=== PATIENT | female | born 1975 | race Caucasian/White ===

== ENCOUNTER → 2017-04-23 | Outpatient (CLI) | payer BC ==
[2017-04-23 19:52] LABS: CH 32.8; CHCM 34.6; HDW 2.58; HGB 13.8 gm/dL (11.4-16.0); MCHC 33.7 g/dL (31.0-37.0); MCV 95.2 fL (80.0-100.0); Mean Platelet Volume 9.8; RDW 13.9 % (11.5-15.5); WBC 7.8 k/uL (3.8-10.6)
[2017-04-23 19:58] LABS: ALT 30 U/L (9-52); AST 25 U/L (14-36); Alkaline Phosphatase 105 U/L (38-126); Anion Gap 10 mmol/L; Blood Urea Nitrogen 17 mg/dL (7-17); Calcium 9.5 mg/dL (8.4-10.2); Carbon Dioxide 23 mmol/L (22-30); Chloride 105 mmol/L (98-107); Glucose 93 mg/dL (74-99); Non-African American GFR(MDRD) >60 (>60 ml/min/1.73 sqM); Potassium 4.1 mmol/L (3.5-5.1); Sodium 138 mmol/L (137-145); Total Bilirubin 0.4 mg/dL (0.2-1.3); Total Protein 7.4 g/dL (6.3-8.2)
[2017-04-24 00:57] LABS: Estradiol 263.7 pg/mL
== END | disposition home or self-care (01) ==
LOC: MMGSC 15:07
PROVIDERS: ATTEND Obstetrics & Gynecology
DX: R68.82 Decreased libido (principal); F41.9 Anxiety disorder, unspecified; R53.83 Other fatigue; R63.5 Abnormal weight gain
CPT/HCPCS: 36415; 80053; 82670; 83001; 84403; 84439; 84443; 85027

== ENCOUNTER → 2021-05-14 | Outpatient (CLI) | payer BC ==
--- NOTE | 2021-05-14 15:06 | US ---
EXAMINATION TYPE: US pelvis complete transvag DATE OF EXAM: 05/14/2021 COMPARISON: Prior pelvic ultrasound 08/17/2010 CLINICAL HISTORY: N93.8 Other specified abnormal uterine and vaginal. TECHNIQUE: Transvaginal (TV) and Transabdominal (TA) . Transabdominal sonographic images of the pel vis were acquired. Transvaginal sonographic images were medically necessary to better assess the fol lowing anatomy: Uterus and ovaries Date of LMP: Abnormal bleeding for 3 weeks. EXAM MEASUREMENTS: Uterus: 9.7x7.7x5.8cm Endometrial Stripe: 1.0m Right Ovary: 4.7x3.1x3.4cm Left Ovary: 4.0x2.7x3.6cm 1. Uterus: Anteverted Heterogenous 2. Endometrium: wnl 3. Right Ovary: Cyst 3.4x2.9x3.4cm, some low-level internal echoes are suspected, some peripheral fl ow is present on color Doppler 4. Left Ovary: cyst 2.5x1.7x1.4cm, cystic focus was identified on prior exam measuring 3.2 x 2.4 x 2 .3 cm 5. Bilateral Adnexa: Obscured by overlying bowel gas 6. Posterior cul-de-sac: wnl Difficult due to patient body habitus. IMPRESSION: Somewhat limited exam technically. Findings could represent hemorrhagic cysts associated with the ovaries. Follow-up could BE performed to assess for resolution or stability.
== END | disposition home or self-care (01) ==
LOC: RADUSWWP 14:02
PROVIDERS: ATTEND Family Medicine
DX: N93.8 Other specified abnormal uterine and vaginal bleeding (principal)
CPT/HCPCS: 76830; 76856

== ENCOUNTER → 2021-11-13 | Outpatient (CLI) | payer BC ==
--- NOTE | 2021-11-13 15:49 | US ---
EXAMINATION TYPE: US axilla LT DATE OF EXAM: 11/13/2021 COMPARISON: NONE CLINICAL HISTORY: 46-year-old female N63.32 MASS L AXILLA. The palpable in the left axilla for a few weeks, the skin is red and tender to touch, was on antibiotics but finished, patient said she did not notice change in size Technique: Targeted ultrasound examination left axilla the palpable site. FINDINGS: At site of palp in left axilla there is a 1.2 x 1.2 x 0.5cm complex cystic structure within the dermi s that is well circumscribed with through transmission. IMPRESSION: Findings suggests a 1.2 cm cystic dermal lesion just below the skin surface, possible sebaceous cyst or epidermal inclusion cyst.
== END | disposition home or self-care (01) ==
LOC: RADUSWWP 11:54
PROVIDERS: ATTEND Family Medicine
DX: N63.32 Unspecified lump in axillary tail of the left breast (principal)

== ENCOUNTER 2022-08-26 08:24 | Observation (INO) | payer BC ==
[2022-08-26] MEDS ORDERED: SODIUM CHLORIDE 0.9% 1,000 ML IV STA (08:50)
--- NOTE | 2022-08-26 08:54 | ED ---
Female Urogenital HPI - General Chief complaint: Vaginal Bleeding Stated complaint: vaginal bleeding, lightheaded Time Seen by Provider: 08/26/22 08:40 Source: patient, RN notes reviewed, old records reviewed Mode of arrival: ambulatory Limitations: no limitations - History of Present Illness Initial comments: 47-year-old female presents with 3 weeks of vaginal bleeding. Has had dysfunctional uterine bleeding in the past and has an appointment with Dr. Sawyer today for this at 10:00. Today felt increasing weakness with occasional shortness of breath and dizziness. Does have history of hypertension. MD Complaint: vaginal bleeding -: week(s) (3) Radiation: suprapubic Severity scale (1-10): 5 Quality: cramping Patient : No Associated Symptoms: other (fatigue, shortness of breath) - Related Data Home Medications Medication Instructions Recorded Confirmed Ibuprofen [Motrin] 800 mg PO Q8H 08/26/22 08/26/22 Liquid Iron Drops (Unknown Brand) 2 ml PO DAILY 08/26/22 08/26/22 Losartan [Cozaar] 25 mg PO HS 08/26/22 08/26/22 Venlafaxine HCl [Effexor XR] 75 mg PO HS 08/26/22 08/26/22 Allergies Allergy/AdvReac Type Severity Reaction Status Date / Time No Known Allergies Allergy Verified 08/26/22 11:17 Review of Systems ROS Statement: Those systems with pertinent positive or pertinent negative responses have been documented in the HPI. ROS Other: All systems not noted in ROS Statement are negative. Past Medical History Past Medical History: Hypertension History of Any Multi-Drug Resistant Organisms: None Reported Additional Past Surgical History / Comment(s): Neck, Breast. Past Psychological History: No Psychological Hx Reported Smoking Status: Current every day smoker Past Alcohol Use History: None Reported Past Drug Use History: None Reported General Exam Limitations: no limitations General appearance: alert, in no apparent distress Head exam: Present: atraumatic Eye exam: Present: other (Conjunctival pallor). Absent: scleral icterus, conjunctival injection, periorbital swelling, periorbital tenderness Neck exam: Absent: tenderness, meningismus Respiratory exam: Present: normal lung sounds bilaterally. Absent: respiratory distress, accessory muscle use Cardiovascular Exam: Present: tachycardia GI/Abdominal exam: Present: soft. Absent: distended, tenderness, rigid Neurological exam: Present: alert, oriented X3 Psychiatric exam: Present: normal affect, normal mood Skin exam: Present: warm, dry, normal color, pallor. Absent: cyanosis, diaphoretic Course Vital Signs 08/26/22 08/26/22 08/26/22 08:33 10:04 11:50 Temperature 97.8 F Pulse Rate 101 H 99 83 Respiratory 22 22 18 Rate Blood Pressure 156/88 123/79 133/89 O2 Sat by Pulse 99 98 Oximetry Medical Decision Making - Medical Decision Making Ultrasound performed for abnormal uterine bleeding on 05/14/2021 showing hemorrhagic cysts. Patient states her last hemoglobin was 10.3 last year when she was having heavy bleeding. Today Hemoglobin 7.8 with hematocrit of 23.6. Ultrasound repeated shows a heterogeneous, uterus with endometrial thickening. Possible ill-defined hyperechoic left near 5 cm intrauterine intramural fibroid Patient ordered 1 unit of red blood cells to be infused. She'll be admitted for symptomatic anemia. Case discussed with Dr. Pedraza who was agreeable to this plan of care. My attending is Dr. Ornelas. Was pt. sent in by a medical professional or institution? @ -no Did you speak to anyone other than the patient for history? @ -no Did you review nursing and triage notes? @ -yes i agree Were old charts reviewed? @ -yes previous u/s and labs Differential Diagnosis? @ -Dysfunctional uterine bleeding, endometriosis, fibroids, vaginal trauma, atrophic endometrium U/S interpreted by me (1pt. min.)? @ -no What testing was considered but not performed? (CT, X-rays, U/S, labs)? Why? @ none What meds were considered but not given? Why? @ -no Did you discuss the management of the patient with other professionals? @ -no Did you reconcile home meds? @ -no Was smoking cessation discussed for >3mins.? @ -no Was critical care preformed (if so, how long)? @ -yes, infusion of packed red blood cells Were there social determinants of health that impacted care today? How? (Homelessness, low income, unemployed, alcoholism, drug addiction, transportation, low edu. Level, literacy, decrease access to med. care, detention, rehab)? @ -no Was there de-escalation of care discussed even if they declined? (Discuss DNR or withdrawal of care, Hospice)? @ -no What co-morbidities impacted this encounter? (DM, HTN, Smoking, COPD, CAD, Cancer, CVA, Hep., AIDS, mental health diagnosis, sleep apnea, morbid obesity)? @ -Obesity, hypertension Was patient admitted / discharged? @ -admitted Undiagnosed new problem with uncertain prognosis? @ -no Drug Therapy requiring intensive monitoring for toxicity (Heparin, Nitro, Insulin, Cardizem)? @ -no Were any procedures done? @ -none Diagnosis/symptom? @ -Symptomatic anemia, dysfunctional uterine bleeding Acute, or Chronic, or Acute on Chronic? @ -acute on chronic Uncomplicated (without systemic symptoms) or Complicated (systemic symptoms)? @ -Complicated Side effects of treatment? @ -[none] Exacerbation, Progression, or Severe Exacerbation] @ -[no] Poses a threat to life or bodily function? @ -Yes - Lab Data Result diagrams: 08/26/22 09:07 08/26/22 09:07 Lab Results 08/26/22 08/26/22 08/26/22 Range/Units 09:07 09:07 09:07 WBC 4.6 (3.8-10.6) k/uL RBC 2.79 L (3.80-5.40) m/uL Hgb 7.8 L (11.4-16.0) gm/dL Hct 23.6 L (34.0-46.0) % MCV 84.8 (80.0-100.0) fL MCH 28.1 (25.0-35.0) pg MCHC 33.1 (31.0-37.0) g/dL RDW 15.8 H (11.5-15.5) % Plt Count 283 (150-450) k/uL MPV 7.4 Neutrophils % 57 % Lymphocytes % 31 % Monocytes % 6 % Eosinophils % 4 % Basophils % 1 % Neutrophils # 2.6 (1.3-7.7) k/uL Lymphocytes # 1.4 (1.0-4.8) k/uL Monocytes # 0.3 (0-1.0) k/uL Eosinophils # 0.2 (0-0.7) k/uL Basophils # 0.0 (0-0.2) k/uL PT 9.8 (9.0-12.0) sec INR 0.9 (<1.2) APTT 23.0 (22.0-30.0) sec Sodium 138 (137-145) mmol/L Potassium 4.3 (3.5-5.1) mmol/L Chloride 107 (98-107) mmol/L Carbon Dioxide 26 (22-30) mmol/L Anion Gap 5 mmol/L BUN 12 (7-17) mg/dL Creatinine 0.76 (0.52-1.04) mg/dL Est GFR (CKD-EPI)AfAm >90 (>60 ml/min/1.73 sqM) Est GFR (CKD-EPI)NonAf >90 (>60 ml/min/1.73 sqM) Glucose 103 H (74-99) mg/dL Calcium 8.3 L (8.4-10.2) mg/dL Magnesium 2.0 (1.6-2.3) mg/dL Total Bilirubin 0.2 (0.2-1.3) mg/dL AST 20 (14-36) U/L ALT 15 (4-34) U/L Alkaline Phosphatase 93 (38-126) U/L Troponin I (0.000-0.034) ng/mL Total Protein 6.5 (6.3-8.2) g/dL Albumin 3.7 (3.5-5.0) g/dL 08/26/22 Range/Units 09:07 WBC (3.8-10.6) k/uL RBC (3.80-5.40) m/uL Hgb (11.4-16.0) gm/dL Hct (34.0-46.0) % MCV (80.0-100.0) fL MCH (25.0-35.0) pg MCHC (31.0-37.0) g/dL RDW (11.5-15.5) % Plt Count (150-450) k/uL MPV Neutrophils % % Lymphocytes % % Monocytes % % Eosinophils % % Basophils % % Neutrophils # (1.3-7.7) k/uL Lymphocytes # (1.0-4.8) k/uL Monocytes # (0-1.0) k/uL Eosinophils # (0-0.7) k/uL Basophils # (0-0.2) k/uL PT (9.0-12.0) sec INR (<1.2) APTT (22.0-30.0) sec Sodium (137-145) mmol/L Potassium (3.5-5.1) mmol/L Chloride (98-107) mmol/L Carbon Dioxide (22-30) mmol/L Anion Gap mmol/L BUN (7-17) mg/dL Creatinine (0.52-1.04) mg/dL Est GFR (CKD-EPI)AfAm (>60 ml/min/1.73 sqM) Est GFR (CKD-EPI)NonAf (>60 ml/min/1.73 sqM) Glucose (74-99) mg/dL Calcium (8.4-10.2) mg/dL Magnesium (1.6-2.3) mg/dL Total Bilirubin (0.2-1.3) mg/dL AST (14-36) U/L ALT (4-34) U/L Alkaline Phosphatase (38-126) U/L Troponin I <0.012 (0.000-0.034) ng/mL Total Protein (6.3-8.2) g/dL Albumin (3.5-5.0) g/dL - EKG Data EKG shows normal: sinus rhythm (Ventricular rate 81, TX interval 0.163, QRS 0.101, QTC 0.426; left axis deviation) Critical Care Time Critical Care Time: Yes Total Critical Care Time: 32 Disposition Clinical Impression: Dysfunctional uterine bleeding, Symptomatic anemia Disposition: ADMITTED IP TO THIS [facility] Decision Date: 08/26/22 Decision Time: 10:18
[2022-08-26 09:26] LABS: Basophils % (A) 1 %; Eosinophils # (A) 0.2 k/uL (0-0.7); Eosinophils % (A) 4 %; HCT 23.6 % (34.0-46.0); HGB 7.8 gm/dL (11.4-16.0); Lymphocytes # (A) 1.4 k/uL (1.0-4.8); Lymphocytes % (A) 31 %; MCH 28.1 pg (25.0-35.0); MCHC 33.1 g/dL (31.0-37.0); MCV 84.8 fL (80.0-100.0); Mean Platelet Volume 7.4; Monocytes # (A) 0.3 k/uL (0-1.0); Monocytes % (A) 6 %; Neutrophils # (A) 2.6 k/uL (1.3-7.7); Neutrophils % (A) 57 %; Platelet Count 283 k/uL (150-450); RBC 2.79 m/uL (3.80-5.40); RDW 15.8 % (11.5-15.5); WBC 4.6 k/uL (3.8-10.6)
[2022-08-26 09:36] LABS: ALT 15 U/L (4-34); AST 20 U/L (14-36); African American GFR (CKD) >90 (>60 ml/min/1.73 sqM); Albumin 3.7 g/dL (3.5-5.0); Alkaline Phosphatase 93 U/L (38-126); Anion Gap 5 mmol/L; Blood Urea Nitrogen 12 mg/dL (7-17); Calcium 8.3 mg/dL (8.4-10.2); Carbon Dioxide 26 mmol/L (22-30); Chloride 107 mmol/L (98-107); Glucose 103 mg/dL (74-99); Non-African American GFR(CKD) >90 (>60 ml/min/1.73 sqM); Potassium 4.3 mmol/L (3.5-5.1); Sodium 138 mmol/L (137-145); Total Bilirubin 0.2 mg/dL (0.2-1.3); Total Protein 6.5 g/dL (6.3-8.2)
[2022-08-26 09:41] LABS: INR 0.9 (<1.2); Prothrombin Time 9.8 sec (9.0-12.0)
--- NOTE | 2022-08-26 09:44 | XR ---
EXAMINATION TYPE: XR chest 2V DATE OF EXAM: 08/26/2022 9:40 AM COMPARISON: None TECHNIQUE: XR chest 2V Frontal and lateral views of the chest. CLINICAL INDICATION:Female, 47 years old with history of Weakness; FINDINGS: Lungs/Pleura: There is no evidence of pleural effusion, focal consolidation, or pneumothorax. Pulmonary vascularity: Unremarkable. Heart/mediastinum: Cardiomediastinal silhouette is unremarkable. Musculoskeletal: No acute osseous pathology. Right cervical rib. IMPRESSION: No acute cardiopulmonary disease/process.
--- NOTE | 2022-08-26 11:08 | US ---
EXAMINATION TYPE: US transvaginal DATE OF EXAM: 08/26/2022 COMPARISON: Prior pelvic ultrasound 2020 CLINICAL HISTORY: vag bleeding. Patient states vaginal bleeding x 3 weeks. Patient states she felt li ghtheaded today. No focal pain. TECHNIQUE: Transvaginal (TV) Date of LMP: 08/07/2022, EXAM MEASUREMENTS: Uterus: 11.7 x 9.8 x 8.3 cm Endometrial Stripe: 1.7 cm Right Ovary: 6.9 x 5.0 x 3.0 cm Left Ovary: 4.5 x 3.3 x 2.3 cm Suboptimal visualization of bilateral ovaries due to position and ultrasound penetration 1. Uterus: Anteverted Enlarged in size. Posterior left focal lesion = 5.4 x 4.1 x 4.2 cm. 2. Endometrium: Appears thickened. 3. Right Ovary: Multiple cystic lesions seen with largest measured= 3.7 x 3.2 x 3.1 cm 4. Left Ovary: cyst lesion seen = 2.8 x 2.6 x 2.3 cm 5. Bilateral Adnexa: no free fluid 6. Posterior cul-de-sac: no free fluid Heterogeneous prominent uterus with endometrium thickened for secretory phase of menstrual cycle up t o 17 mm. Possible ill-defined hyperechoic left near 5.0 cm intrauterine intramural fibroid. No free f luid. Both ovaries identified with small simple appearing thin-walled cysts. IMPRESSION: Probable fibroid uterus. Abnormal thickening of the endometrium. Advise OB referral to co nsider dilatation and curettage evaluation to further evaluate.
[2022-08-26] MEDS ORDERED: HYDROmorphone 0.5 MG/0.5 ML SYRINGE IVP STA (11:26)
[2022-08-26] MEDS ORDERED: ACETAMINOPHEN TAB 325 MG TAB PO PRN (12:06)
[2022-08-26] MEDS ORDERED: NALOXONE 0.4 MG/ML 1 ML VIAL IV PRN (12:06)
[2022-08-26 14:47] LABS: Anisocytosis Slight; HCT 22.1 % (34.0-46.0); HGB 7.2 gm/dL (11.4-16.0); MCH 28.2 pg (25.0-35.0); MCHC 32.7 g/dL (31.0-37.0); MCV 86.5 fL (80.0-100.0); Mean Platelet Volume 7.4; Platelet Count 269 k/uL (150-450); RBC 2.55 m/uL (3.80-5.40); RDW 16.2 % (11.5-15.5); WBC 5.2 k/uL (3.8-10.6)
[2022-08-26] MEDS ORDERED: IBUPROFEN 800 MG TAB PO PRN (15:23)
[2022-08-26] MEDS ORDERED: medroxyPROGESTERone 10 MG TABLET PO STA (15:26)
[2022-08-26] MEDS: IBUPROFEN 800 MG TAB PO PRN (16:03)
--- NOTE | 2022-08-26 18:10 | P.HPOB ---
History of Present Illness H&P Date: 08/26/22 Chief Complaint: Vaginal bleeding and fatigue This is a 47-year-old woman with a 3 week history of heavy vaginal bleeding. She woke up this morning feeling of extremely fatigued and lightheaded therefore came to the emergency room. Hemoglobin was found to be 7.8 upon evaluation. She states her periods have been prolonged and irregular for the last 2-3 years. She did undergo an endometrial biopsy in May 2021 which was reportedly negative with Dr Garcia at [facility]. She was offered ablation at that time however declined. She started on iron supplementation approximately 2 days ago. She is using nothing for contraception. Ultrasound shows moderately enlarged uterus measuring 11.7 x 9.8 x 8.3 with endometrial stripe thickness of 1.7 cm. The right ovary shows multiple small cysts the largest of which measures 3.7 cm. Left ovary is normal. There is a possible 5 cm intramural fibroid that is not well defined. She denies shortness of breath or chest pain however has been easily fatigable over the last several months. Her bleeding history is somewhat unclear but does sound as though she has episodes of prolonged periods lasting between 10 and 30 days for the last 2 years. She denies abdominal or pelvic pain. She denies blood in the stool or urine. She denies nausea vomiting or diarrhea. She has a past medical history significant for tobacco use and hypertension. Review of Systems Constitutional: Reports fatigue, Reports weakness, Denies chills, Denies fever Ears, nose, mouth and throat: Reports headache Cardiovascular: Reports dyspnea on exertion, Reports high blood pressure, Reports lightheadedness, Denies chest pain, Denies irregular heart beat, Denies rapid heart beat, Denies syncope Respiratory: Reports congestion, Reports cough Gastrointestinal: Denies abdominal pain, Denies BRBPR, Denies heartburn, Denies melena, Denies nausea, Denies vomiting Genitourinary: Reports abnormal vaginal bleeding, Denies dysmenorrhea, Denies hematuria, Denies pelvic pain Menstruation: Reports as per HPI Integumentary: Denies unusual bruising Endocrine: Denies excessive sweating Hematologic/Lymphatic: Denies easy bleeding, Denies easy bruising Past Medical History Past Medical History: Hypertension History of Any Multi-Drug Resistant Organisms: None Reported Additional Past Surgical History / Comment(s): Neck, Breast. Past Anesthesia/Blood Transfusion Reactions: No Reported Reaction Past Psychological History: No Psychological Hx Reported Smoking Status: Current every day smoker Past Alcohol Use History: None Reported Past Drug Use History: None Reported Medications and Allergies Home Medications Medication Instructions Recorded Confirmed Type Ibuprofen [Motrin] 800 mg PO Q8H 08/26/22 08/26/22 History Liquid Iron Drops (Unknown Brand) 2 ml PO DAILY 08/26/22 08/26/22 History Losartan [Cozaar] 25 mg PO HS 08/26/22 08/26/22 History Venlafaxine HCl [Effexor XR] 75 mg PO HS 08/26/22 08/26/22 History Allergies Allergy/AdvReac Type Severity Reaction Status Date / Time No Known Allergies Allergy Verified 08/26/22 11:17 Exam Vital Signs Temp Pulse Pulse Resp BP BP Pulse Ox 08/26/22 15:00 82 16 124/85 08/26/22 13:45 98.4 F 87 16 133/93 98 08/26/22 13:44 97.8 F 83 18 133/89 98 08/26/22 11:50 83 18 133/89 98 08/26/22 10:04 99 22 123/79 08/26/22 08:33 97.8 F 101 H 22 156/88 99 Intake and Output 08/26/22 08/26/22 08/26/22 06:59 14:59 22:59 Other: Weight 120.202 kg This is a pleasant female appearing her stated age. No apparent distress. HEENT exam is unremarkable with no palpable lymphadenopathy. Her breathing is unlabored and her heart is a regular rate and rhythm. The abdomen is obese, soft and nontender with no rebound, no guarding and no flank pain. On pelvic examination she has normal external female genitalia. There is a scant amount of blood on the emelia-pad. On bimanual examination this is somewhat limited by the patient's body habitus however the uterus does feel somewhat enlarged approximately 8 weeks' size, freely mobile and in the midline. No cervical masses. No adnexal masses appreciated but exam is limited. Results Result Diagrams: 08/26/22 14:44 08/26/22 09:07 Abnormal Lab Results - Last 24 Hours (Table) 08/26/22 08/26/22 08/26/22 Range/Units 09:07 09:07 14:44 RBC 2.79 L 2.55 L (3.80-5.40) m/uL Hgb 7.8 L 7.2 L (11.4-16.0) gm/dL Hct 23.6 L 22.1 L (34.0-46.0) % RDW 15.8 H 16.2 H (11.5-15.5) % Glucose 103 H (74-99) mg/dL Calcium 8.3 L (8.4-10.2) mg/dL Assessment and Plan (1) Ovarian cyst Current Visit: Yes Status: Acute Code(s): N83.209 - UNSPECIFIED OVARIAN CYST, UNSPECIFIED SIDE SNOMED Code(s): 01482513 (2) Tobacco use Current Visit: Yes Status: Acute Code(s): Z72.0 - TOBACCO USE SNOMED Code(s): 319211632 (3) Hypertension Current Visit: Yes Status: Acute Code(s): I10 - ESSENTIAL (PRIMARY) HYPERTENSION SNOMED Code(s): 05674424 (4) Dysfunctional uterine bleeding Current Visit: Yes Status: Acute Code(s): N93.8 - OTHER SPECIFIED ABNORMAL UTERINE AND VAGINAL BLEEDING SNOMED Code(s): 12233735896627 (5) Symptomatic anemia Current Visit: Yes Status: Acute Code(s): D64.9 - ANEMIA, UNSPECIFIED SNOMED Code(s): 741262143 Plan: Be 7-year-old 2 para 2 woman with dysfunctional uterine bleeding, symptomatic anemia and possible ovarian cyst and fibroids. Bleeding currently appears mild to moderate. She declines blood transfusion at this time and we will stabilize her bleeding with IV tranexamic acid and oral progesterone. Estrogens contraindicated secondary to hypertension and tobacco use. She will need a tissue diagnosis and further evaluation which can be accomplished in the outpatient setting in a timely fashion. Oral iron will be continued as well. Time with Patient: Greater than 30
[2022-08-26] MEDS: TRANEXAMIC ACID 1,000 MG in SODIUM CHLORIDE 0.9% 100 ML IVPB SCH (19:29)
[2022-08-26] MEDS ORDERED: VENLAFAXINE HCL ER 75 MG CAP PO SCH (21:00)
[2022-08-26] MEDS ORDERED: LOSARTAN 25 MG TAB PO SCH (21:00)
[2022-08-27] MEDS: TRANEXAMIC ACID 1,000 MG in SODIUM CHLORIDE 0.9% 100 ML IVPB SCH (03:07)
[2022-08-27 03:17] VITALS: TEMP 98.4
[2022-08-27 08:01] LABS: HCT 22.6 % (34.0-46.0); HGB 7.4 gm/dL (11.4-16.0); MCH 28.8 pg (25.0-35.0); MCHC 32.9 g/dL (31.0-37.0); MCV 87.5 fL (80.0-100.0); Mean Platelet Volume 7.5; Platelet Count 265 k/uL (150-450); RBC 2.58 m/uL (3.80-5.40); RDW 15.7 % (11.5-15.5); WBC 4.2 k/uL (3.8-10.6)
[2022-08-27] MEDS: IBUPROFEN 800 MG TAB PO PRN (08:32)
[2022-08-27] MEDS ORDERED: medroxyPROGESTERone 10 MG TABLET PO SCH (09:00)
[2022-08-27] MEDS ORDERED: FERROUS SULFATE DROPS 750 MG/50 ML BOTTLE PO SCH (09:00)
[2022-08-27 09:20] VITALS: BP 116/77; PULSE 67; RESP 16
--- NOTE | 2022-08-27 09:33 | P.DS ---
Providers Date of admission: 08/26/22 10:28 Expected date of discharge: 08/27/22 Attending physician: Kristie Pedraza Primary care physician: Renate Matt - Discharge Diagnosis(es) (1) Ovarian cyst Current Visit: Yes Status: Acute (2) Tobacco use Current Visit: Yes Status: Acute (3) Hypertension Current Visit: Yes Status: Acute (4) Dysfunctional uterine bleeding Current Visit: Yes Status: Acute (5) Symptomatic anemia Current Visit: Yes Status: Acute Hospital Course: This is a 47-year-old 2 para 2 woman who presented to the emergency department on 08/26/2022 with complaints of ongoing heavy vaginal bleeding. She was found to be anemic and was therefore admitted for further observation and evaluation. She had a ultrasound while in the emergency room that showed a thickened endometrial stripe of 1.7 cm, a possible uterine fibroid and a cystic right ovary. Throughout her observation her vital signs remained stable without hypotension or tachycardia. She had excellent urine output. On admission Her physical exam was significant for mild to moderate vaginal bleeding and a moderately enlarged uterus on pelvic examination. Due to her symptomatic anemia with a casper of 7.2 hemoglobin she was offered blood transfusion of 1 unit. After discussion of risks and benefits the patient declined transfusion. She was treated with IV tranexamic acid which significantly decreased her bleeding throughout the night. Hemoglobin this morning is stable at 7.4. And her vital signs remained stable. She reports ambulating and voiding without difficulty but still complains of significant fatigue. She is counseled regarding the need for tissue diagnosis and close follow-up has been arranged in the outpatient setting. She will go home on oral tranexamic acid as needed for heavy bleeding and bleeding precautions are reviewed. Appointment made for 08/28/2022 at 10:30 AM. Patient Condition at Discharge: Stable Plan - Discharge Summary New Discharge Prescriptions: New Acetaminophen Tab [Tylenol] 650 mg PO Q6HR PRN #30 tab PRN Reason: Mild Pain Or Fever > 100.5 Tranexamic Acid [Lysteda] 650 mg PO Q8HR PRN 2 Days #6 tablet PRN Reason: Bleeding Continue Venlafaxine HCl [Effexor XR] 75 mg PO HS Losartan [Cozaar] 25 mg PO HS No Action Ibuprofen [Motrin] 800 mg PO Q8H Liquid Iron Drops (Unknown Brand) 2 ml PO DAILY Discharge Medication List Ibuprofen [Motrin] 800 mg PO Q8H 08/26/22 [History] Liquid Iron Drops (Unknown Brand) 2 ml PO DAILY 08/26/22 [History] Losartan [Cozaar] 25 mg PO HS 08/26/22 [History] Venlafaxine HCl [Effexor XR] 75 mg PO HS 08/26/22 [History] Acetaminophen Tab [Tylenol] 650 mg PO Q6HR PRN #30 tab 08/27/22 [Rx] Tranexamic Acid [Lysteda] 650 mg PO Q8HR PRN 2 Days #6 tablet 08/27/22 [Rx] Follow up Appointment(s)/Referral(s): Dione Sawyer MD [STAFF PHYSICIAN] - 08/28/22 10:30 am Activity/Diet/Wound Care/Special Instructions: Follow-up in the office as scheduled on 08/28/2022. Return to emergency room with any heavy bleeding not controlled with oral medications as prescribed, any redness or swelling of the lower extremities, any shortness of breath or chest pain or any other concerning signs or symptoms. Discharge Disposition: HOME SELF-CARE
== END 2022-08-27 10:32 | disposition home or self-care (01) ==
LOC: EC 08:24 → 4FBP 10:28
PROVIDERS: ADMIT Obstetrics & Gynecology; ATTEND Obstetrics & Gynecology
DX: N83.209 Unspecified ovarian cyst, unspecified side (principal); D64.9 Anemia, unspecified; I10 Essential (primary) hypertension; F17.200 Nicotine dependence, unspecified, uncomplicated
CPT/HCPCS: 96365; 96366; 96361; 99285; 36415; 93005; 86900; 86901; 80053; 86304; 83735; 84484; 85025; 85027 ×2; 85610; 85730; 86850; 71046; 76830; G0378 ×2

== ENCOUNTER 2022-08-30 09:34 | Emergency (ER) | payer BC ==
--- NOTE | 2022-08-30 10:35 | ED ---
Dizziness HPI - General Chief Complaint: Dizziness Stated Complaint: lightheaded, vaginal bleeding-revisit Time Seen by Provider: 08/30/22 09:56 Source: patient, RN notes reviewed Mode of arrival: ambulatory Limitations: no limitations - History of Present Illness Initial Comments: This is a 47-year-old female who presents to the emergency department for vaginal bleeding. Patient was evaluated here on 08/26 and admitted overnight for dysfunctional uterine bleeding. She was found to have a low hemoglobin level but ended up declining a blood transfusion. She had an endometrial biopsy but the results are still pending. After discharge, the bleeding did improve and she was treated with progesterone and tranxenamic acid, however she ended up running out of the tranxenamic acid. She resumed this medicine last night because she started to bleed again. States that she does not have any significant bleeding when lying down, however whenever she goes to stand up, the blood feels like it is rushing out of her. She is going through approximately one pad in 2 hours, however she again notes that the bleeding is only prominent when standing up, and this causes her to go through pads much more quickly. This morning and last night, she felt very dizzy and lightheaded again, similar to when she was here on the . Feels like she is losing her train of thought and overall feels very weak. She otherwise denies any pain such as abdominal pain or cramping or nausea/vomiting. She does note an associated headache. Denies any fevers, chills, sore throat, cough, dyspnea, chest pain, palpitations, abdominal pain, nausea, vomiting, diarrhea, or back pain. MD Complaint: dizziness, lightheadedness - Related Data Home Medications Medication Instructions Recorded Confirmed Liquid Iron Drops (Unknown Brand) 2 ml PO DAILY 08/26/22 08/30/22 Losartan [Cozaar] 25 mg PO HS 08/26/22 08/30/22 Venlafaxine HCl [Effexor XR] 75 mg PO HS 08/26/22 08/30/22 Previous Rx's Medication Instructions Recorded Acetaminophen Tab [Tylenol] 650 mg PO Q6HR PRN #30 tab 08/27/22 Ibuprofen [Motrin] 800 mg PO Q8H PRN #30 tab 08/27/22 Tranexamic Acid [Lysteda] 650 mg PO Q8HR PRN 2 Days #6 tablet 08/30/22 medroxyPROGESTERone [Provera] 10 mg PO DAILY 3 Days #3 tablet 08/30/22 Allergies Allergy/AdvReac Type Severity Reaction Status Date / Time No Known Allergies Allergy Verified 08/30/22 11:24 Review of Systems ROS Statement: Those systems with pertinent positive or pertinent negative responses have been documented in the HPI. ROS Other: All systems not noted in ROS Statement are negative. Past Medical History Past Medical History: Hypertension History of Any Multi-Drug Resistant Organisms: None Reported Additional Past Surgical History / Comment(s): Neck, Breast. Past Anesthesia/Blood Transfusion Reactions: No Reported Reaction Past Psychological History: No Psychological Hx Reported Smoking Status: Current every day smoker Past Alcohol Use History: None Reported Past Drug Use History: None Reported General Exam Limitations: no limitations General appearance: alert, in no apparent distress Head exam: Present: atraumatic, normocephalic, normal inspection Respiratory exam: Present: normal lung sounds bilaterally. Absent: respiratory distress, wheezes, rales, rhonchi, stridor Cardiovascular Exam: Present: regular rate, normal rhythm, normal heart sounds. Absent: systolic murmur, diastolic murmur, rubs, gallop, clicks GI/Abdominal exam: Present: soft. Absent: distended, tenderness Extremities exam: Present: other (No upper or lower extremity swelling or erythema.). Absent: calf tenderness Neurological exam: Present: alert, oriented X3, CN II-XII intact Psychiatric exam: Present: normal affect, normal mood Skin exam: Present: warm, dry, intact, pallor Course Vital Signs 08/30/22 08/30/22 08/30/22 09:39 11:41 13:42 Temperature 98.2 F 98.6 F 97.8 F Pulse Rate 85 72 89 Respiratory 22 18 18 Rate Blood Pressure 161/90 113/72 116/78 O2 Sat by Pulse 99 100 98 Oximetry 08/30/22 08/30/22 08/30/22 13:55 14:15 15:00 Temperature 97.7 F 98 F 97.9 F Pulse Rate 75 77 76 Respiratory 18 18 18 Rate Blood Pressure 111/75 120/83 127/84 O2 Sat by Pulse 100 100 99 Oximetry 08/30/22 15:53 Temperature 98.6 F Pulse Rate 78 Respiratory 18 Rate Blood Pressure 122/83 O2 Sat by Pulse 99 Oximetry Medical Decision Making - Medical Decision Making This is a 47-year-old female who presents to the emergency department for dizziness and vaginal bleeding. Was pt. sent in by a medical professional or institution? @ -No Did you speak to anyone other than the patient for history? @ -No Did you review nursing and triage notes? @ -Yes, and I agree, it is accurate with regards to the patient's symptoms. Were old charts reviewed? @ -Yes, admission records and blood work from 08/26 through 08/27. Differential Diagnosis? @ -Differential Dizziness: Benign paroxysmal positional Vertigo, Menieres disease, otitis media, acoustic neuroma, vertebrobasilar insufficiency, cerebellar stroke, encephalitis, hypovolemic, arrhythmia, coronary artery syndrome, anemia, this is not meant to be an all-inclusive list Differential Vaginal Bleeding: Spontaneous , threatened , molar , ectopic , incompetent cervix, placenta previa, uterine rupture, dysfunctional uterine bleeding, hemorrhage, uterine fibroids, malignancy, coagulopathy, PID, cervicitis, adenomyosis, vaginal trauma, this is not meant to be an all- inclusive list. EKG interpreted by me (3pts min.)? @ -Sinus rhythm. Ventricular rate 79 bpm, SC interval 165 ms, QRS duration 99 ms, QTC 399 ms. What testing was considered but not performed? (CT, X-rays, U/S, labs)? Why? @ -None What meds were considered but not given? Why? @ -None Did you discuss the management of the patient with other professionals? @ -No Did you reconcile home meds? @ -No Was smoking cessation discussed for >3mins.? @ -No Was critical care preformed (if so, how long)? @ -No Were there social determinants of health that impacted care today? How? (Homelessness, low income, unemployed, alcoholism, drug addiction, transpor tation, low edu. Level, literacy, decrease access to med. care, [facility] [facility], rehab)? @ -No Was there de-escalation of care discussed even if they declined? (Discuss DNR or withdrawal of care, Hospice)? @ -No What co-morbidities impacted this encounter? (DM, HTN, Smoking, COPD, CAD, Cancer, CVA, Hep., AIDS, mental health diagnosis, sleep apnea, morbid obesity)? @ -Morbid obesity, dysfunctional uterine bleeding. Was patient admitted / discharged? @ -Discharged. Lab work continues to reveal a low hemoglobin level of 8.2, however it is improved when compared with prior values. Discussed with the patient a blood transfusion for symptomatic acute blood loss anemia. Risks and benefits were thoroughly reviewed and the patient wishes to proceed. One unit of packed red blood cells was administered. She declined the need for readmission at this time. Given that her hemoglobin has improved and she received a blood transfusion, I am agreeable to this. She also has an upcoming appointment with her LASER BEAM MACHINE OPERATOR in 3 days. Prescription for Tranexamic was provided at the same dosing prescribed by the machinery cleaner 3 days ago. She was also given a prescription for progesterone. Dosing instructions reviewed. Reminded her that these medications increase the risk for blood clots. Patient expresses understanding and wishes to proceed. Advised that if she were to develop any chest pain, shortness of breath, or pain/swelling/redness to the upper or lower extremities, she should return to the emergency department immediately and stop taking these medications. She will follow up with her machinery cleaner as scheduled on 09/02. Undiagnosed new problem with uncertain prognosis? @ -None Drug Therapy requiring intensive monitoring for toxicity (Heparin, Nitro, Insulin, Cardizem)? @ -None Were any procedures done? @ -None Diagnosis/symptom? @ -DUB Acute, or Chronic, or Acute on Chronic? @ -Acute Uncomplicated (without systemic symptoms) or Complicated (systemic symptoms)? @ -Complicated Side effects of treatment? @ -None Exacerbation, Progression, or Severe Exacerbation] @ -Not applicable Poses a threat to life or bodily function? @ -Yes, the bleeding is interfering with her ability to perform daily tasks. Return precautions reviewed in depth, the patient is instructed to return to the emergency department with any new, worsening, or concerning symptoms. Patient verbalized understanding. This case was discussed in detail with the attending ED physician., Dr. June. Presentation, findings, and treatment plan discussed in detail as well. - Lab Data Result diagrams: 08/30/22 10:30 08/30/22 10:30 Lab Results 08/30/22 08/30/22 08/30/22 Range/Units 10:30 10:30 10:30 WBC 4.7 (3.8-10.6) k/uL RBC 2.91 L (3.80-5.40) m/uL Hgb 8.2 L (11.4-16.0) gm/dL Hct 25.0 L (34.0-46.0) % MCV 85.8 (80.0-100.0) fL MCH 28.1 (25.0-35.0) pg MCHC 32.8 (31.0-37.0) g/dL RDW 15.9 H (11.5-15.5) % Plt Count 330 (150-450) k/uL MPV 8.3 Neutrophils % 54 % Lymphocytes % 34 % Monocytes % 6 % Eosinophils % 4 % Basophils % 1 % Neutrophils # 2.5 (1.3-7.7) k/uL Lymphocytes # 1.6 (1.0-4.8) k/uL Monocytes # 0.3 (0-1.0) k/uL Eosinophils # 0.2 (0-0.7) k/uL Basophils # 0.0 (0-0.2) k/uL Sodium (137-145) mmol/L Potassium (3.5-5.1) mmol/L Chloride (98-107) mmol/L Carbon Dioxide (22-30) mmol/L Anion Gap mmol/L BUN (7-17) mg/dL Creatinine (0.52-1.04) mg/dL Est GFR (CKD-EPI)AfAm (>60 ml/min/1.73 sqM) Est GFR (CKD-EPI)NonAf (>60 ml/min/1.73 sqM) Glucose (74-99) mg/dL Calcium (8.4-10.2) mg/dL Iron (50-170) ug/dL TIBC (228-460) ug/dL % Saturation (12.00-45.00) Transferrin (204.0-354.0) mg/dL Total Bilirubin (0.2-1.3) mg/dL AST (14-36) U/L ALT (4-34) U/L Alkaline Phosphatase (38-126) U/L Total Protein (6.3-8.2) g/dL Albumin (3.5-5.0) g/dL TSH (0.465-4.680) mIU/L Prolactin (2.800-29.200) ng/mL Urine Color Light Red Urine Appearance Clear (Clear) Urine pH 6.0 (5.0-8.0) Ur Specific [place] 1.012 (1.001-1.035) Urine Protein Trace H (Negative) Urine Glucose (UA) Negative (Negative) Urine Ketones Negative (Negative) Urine Blood Large H (Negative) Urine Nitrite Negative (Negative) Urine Bilirubin Negative (Negative) Urine Urobilinogen <2.0 (<2.0) mg/dL Ur Leukocyte Esterase Small H (Negative) Urine RBC >182 H (0-5) /hpf Urine WBC 9 H (0-5) /hpf Ur Squamous Epith Cells 1 (0-4) /hpf Amorphous Sediment Rare H (None) /hpf Urine HCG, Qual Not Detected (Not Detectd) Blood Type Blood Type Recheck Bld Type Recheck Status Antibody Screen Crossmatch Spec Expiration Date 08/30/22 08/30/22 Range/Units 10:30 10:30 WBC (3.8-10.6) k/uL RBC (3.80-5.40) m/uL Hgb (11.4-16.0) gm/dL Hct (34.0-46.0) % MCV (80.0-100.0) fL MCH (25.0-35.0) pg MCHC (31.0-37.0) g/dL RDW (11.5-15.5) % Plt Count (150-450) k/uL MPV Neutrophils % % Lymphocytes % % Monocytes % % Eosinophils % % Basophils % % Neutrophils # (1.3-7.7) k/uL Lymphocytes # (1.0-4.8) k/uL Monocytes # (0-1.0) k/uL Eosinophils # (0-0.7) k/uL Basophils # (0-0.2) k/uL Sodium 138 (137-145) mmol/L Potassium 4.5 (3.5-5.1) mmol/L Chloride 108 H (98-107) mmol/L Carbon Dioxide 24 (22-30) mmol/L Anion Gap 6 mmol/L BUN 11 (7-17) mg/dL Creatinine 0.85 (0.52-1.04) mg/dL Est GFR (CKD-EPI)AfAm >90 (>60 ml/min/1.73 sqM) Est GFR (CKD-EPI)NonAf 82 (>60 ml/min/1.73 sqM) Glucose 95 (74-99) mg/dL Calcium 8.5 (8.4-10.2) mg/dL Iron 42 L (50-170) ug/dL TIBC 526 H (228-460) ug/dL % Saturation 7.96 L (12.00-45.00) Transferrin 376.0 H (204.0-354.0) mg/dL Total Bilirubin 0.2 (0.2-1.3) mg/dL AST 20 (14-36) U/L ALT 16 (4-34) U/L Alkaline Phosphatase 110 (38-126) U/L Total Protein 7.3 (6.3-8.2) g/dL Albumin 4.1 (3.5-5.0) g/dL TSH 1.920 (0.465-4.680) mIU/L Prolactin 13.800 (2.800-29.200) ng/mL Urine Color Urine Appearance (Clear) Urine pH (5.0-8.0) Ur Specific [place] (1.001-1.035) Urine Protein (Negative) Urine Glucose (UA) (Negative) Urine Ketones (Negative) Urine Blood (Negative) Urine Nitrite (Negative) Urine Bilirubin (Negative) Urine Urobilinogen (<2.0) mg/dL Ur Leukocyte Esterase (Negative) Urine RBC (0-5) /hpf Urine WBC (0-5) /hpf Ur Squamous Epith Cells (0-4) /hpf Amorphous Sediment (None) /hpf Urine HCG, Qual (Not Detectd) Blood Type O Positive Blood Type Recheck O Pos Bld Type Recheck Status No Antibody Screen NEGATIVE Crossmatch See Detail Spec Expiration Date 09/02/20222329 Disposition Clinical Impression: DUB (dysfunctional uterine bleeding) Disposition: HOME SELF-CARE Instructions (If sedation given, give patient instructions): Abnormal (Dysfunctional) Uterine Bleeding (ED) Additional Instructions: Return to the emergency department with any new, worsening, or concerning symptoms, especially chest pain, shortness of breath, or redness and swelling to the upper or lower extremities. The Provera will be taken once daily and the Tranexamic acid will be taken as previously prescribed for heavy bleeding. Follow up with your LASER BEAM MACHINE OPERATOR as scheduled on Friday. Prescriptions: Tranexamic Acid [Lysteda] 650 mg PO Q8HR PRN 2 Days #6 tablet PRN Reason: Bleeding medroxyPROGESTERone [Provera] 10 mg PO DAILY 3 Days #3 tablet Is patient prescribed a controlled substance at d/c from ED?: No Referrals: Renate Matt DO [Primary Care Provider] - 1-2 days
[2022-08-30 11:02] LABS: Basophils % (A) 1 %; Eosinophils # (A) 0.2 k/uL (0-0.7); Eosinophils % (A) 4 %; HGB 8.2 gm/dL (11.4-16.0); Lymphocytes # (A) 1.6 k/uL (1.0-4.8); Lymphocytes % (A) 34 %; MCH 28.1 pg (25.0-35.0); MCHC 32.8 g/dL (31.0-37.0); MCV 85.8 fL (80.0-100.0); Mean Platelet Volume 8.3; Monocytes # (A) 0.3 k/uL (0-1.0); Monocytes % (A) 6 %; Neutrophils # (A) 2.5 k/uL (1.3-7.7); Neutrophils % (A) 54 %; Platelet Count 330 k/uL (150-450); RBC 2.91 m/uL (3.80-5.40); RDW 15.9 % (11.5-15.5); WBC 4.7 k/uL (3.8-10.6)
[2022-08-30 11:08] LABS: ALT 16 U/L (4-34); AST 20 U/L (14-36); African American GFR (CKD) >90 (>60 ml/min/1.73 sqM); Albumin 4.1 g/dL (3.5-5.0); Alkaline Phosphatase 110 U/L (38-126); Anion Gap 6 mmol/L; Blood Urea Nitrogen 11 mg/dL (7-17); Calcium 8.5 mg/dL (8.4-10.2); Carbon Dioxide 24 mmol/L (22-30); Chloride 108 mmol/L (98-107); Glucose 95 mg/dL (74-99); Non-African American GFR(CKD) 82 (>60 ml/min/1.73 sqM); Potassium 4.5 mmol/L (3.5-5.1); Sodium 138 mmol/L (137-145); Total Bilirubin 0.2 mg/dL (0.2-1.3); Total Protein 7.3 g/dL (6.3-8.2)
[2022-08-30 11:26] LABS: Amorphous Sediment,Urine Rare /hpf; Appearance,Urine Clear (Clear); Bilirubin,Urine Negative (Negative); Blood,Urine Large (Negative); Color,Urine Light Red; Glucose,Urine (UA) Negative (Negative); Ketones,Urine Negative (Negative); Leukocyte Esterase,Urine Small (Negative); Nitrite,Urine Negative (Negative); Protein,Urine Trace (Negative); RBC,Urine >182 /hpf (0-5); Specific Gravity,Urine 1.012 (1.001-1.035); Squamous Epithelial Cell,Urine 1 /hpf (0-4); Urobilinogen,Urine <2.0 mg/dL (<2.0); WBC,Urine 9 /hpf (0-5)
[2022-08-30 11:42] VITALS: RESP 18
[2022-08-30 15:54] VITALS: BP 122/83; PULSE 78; TEMP 98.6
[2022-08-30 19:03] LABS: % Iron Saturation 7.96 (12.00-45.00); Iron 42 ug/dL (50-170); Total Iron Binding Capacity 526 ug/dL (228-460)
== END 2022-08-30 16:03 | disposition home or self-care (01) ==
LOC: EC 09:34
DX: N93.8 Other specified abnormal uterine and vaginal bleeding (principal); I10 Essential (primary) hypertension; F17.200 Nicotine dependence, unspecified, uncomplicated
CPT/HCPCS: 36415; 93005; 86900; 86901; 80053; 84443; 83540; 83550; 85025; 86850; 86920; 81001; 81025; 84146; 99284; 36430; P9016

== ENCOUNTER 2023-02-02 10:41 | Emergency (ER) | payer BC ==
[2023-02-02 11:45] LABS: Anisocytosis Slight; Basophils % (A) 1 %; Eosinophils # (A) 0.3 k/uL (0-0.7); Eosinophils % (A) 6 %; HGB 12.8 gm/dL (11.4-16.0); Lymphocytes # (A) 1.7 k/uL (1.0-4.8); Lymphocytes % (A) 32 %; MCH 29.7 pg (25.0-35.0); MCHC 34.5 g/dL (31.0-37.0); Mean Platelet Volume 7.7; Monocytes # (A) 0.3 k/uL (0-1.0); Monocytes % (A) 6 %; Neutrophils # (A) 2.8 k/uL (1.3-7.7); Neutrophils % (A) 54 %; Platelet Count 233 k/uL (150-450); RDW 16.4 % (11.5-15.5); WBC 5.3 k/uL (3.8-10.6)
--- NOTE | 2023-02-02 11:48 | XR ---
EXAMINATION TYPE: XR chest 2V DATE OF EXAM: 02/02/2023 COMPARISON: 08/26/2022 INDICATION: Chest pain left side TECHNIQUE: Frontal and lateral views of the chest are obtained. FINDINGS: The heart size is normal. The pulmonary vasculature is normal. The lungs are clear. IMPRESSION: 1. No acute pulmonary process.
[2023-02-02 11:53] LABS: ALT 19 U/L (4-34); AST 26 U/L (14-36); African American GFR (CKD) >90 (>60 ml/min/1.73 sqM); Albumin 4.1 g/dL (3.5-5.0); Alkaline Phosphatase 110 U/L (38-126); Anion Gap 6 mmol/L; Blood Urea Nitrogen 17 mg/dL (7-17); Calcium 9.3 mg/dL (8.4-10.2); Carbon Dioxide 23 mmol/L (22-30); Chloride 109 mmol/L (98-107); Glucose 102 mg/dL (74-99); Lipase 67 U/L (23-300); Magnesium 1.8 mg/dL (1.6-2.3); Non-African American GFR(CKD) 86 (>60 ml/min/1.73 sqM); Potassium 4.4 mmol/L (3.5-5.1); Sodium 138 mmol/L (137-145); Total Bilirubin 0.5 mg/dL (0.2-1.3); Total Protein 7.4 g/dL (6.3-8.2)
[2023-02-02 11:57] LABS: INR 0.9 (<1.2); Partial Thromboplastin Time 24.8 sec (22.0-30.0)
--- NOTE | 2023-02-02 12:38 | ED ---
Chest Pain HPI - General Chief Complaint: Chest Pain Stated Complaint: chest pain and high blood pressure Time Seen by Provider: 02/02/23 10:45 Source: patient Mode of arrival: ambulatory - History of Present Illness Initial Comments: 47-year-old female presents to the emergency department for hypertension and left-sided chest wall pain. States that it's been going on for the past 3 weeks. She occasionally checks her blood pressure and as of recently noted that it has been running higher. She is on losartan 25 mg daily and has been taking it as directed. She also began having some left-sided chest wall pain. Describes it as a tickle sensation with radiation into her left arm. She does not have any history of cardiac disease. No calf pain or swelling. No history of DVT or PE. No fevers, chills or cough. Pain is not reproducible with any specific modalities. Pain not present at this time. No other alleviating, precipitating or modifying factors - Related Data Home Medications Medication Instructions Recorded Confirmed Liquid Iron Drops (Unknown Brand) 2 ml PO HS 08/26/22 09/12/22 Losartan [Cozaar] 25 mg PO HS 08/26/22 09/12/22 Venlafaxine HCl [Effexor XR] 75 mg PO HS 08/26/22 09/12/22 medroxyPROGESTERone [Provera] 10 mg PO HS 09/12/22 09/12/22 Previous Rx's Medication Instructions Recorded Acetaminophen Tab [Tylenol] 650 mg PO Q6HR PRN #30 tab 08/27/22 Ibuprofen [Motrin] 800 mg PO Q8H PRN #30 tab 08/27/22 Tranexamic Acid [Lysteda] 650 mg PO Q8HR PRN 2 Days #6 tablet 08/30/22 Losartan [Cozaar] 50 mg PO DAILY #30 tab 02/02/23 Allergies Allergy/AdvReac Type Severity Reaction Status Date / Time No Known Allergies Allergy Verified 02/02/23 10:46 Review of Systems ROS Statement: Those systems with pertinent positive or pertinent negative responses have been documented in the HPI. ROS Other: All systems not noted in ROS Statement are negative. Past Medical History Past Medical History: Hypertension History of Any Multi-Drug Resistant Organisms: None Reported Past Surgical History: Hysterectomy Additional Past Surgical History / Comment(s): Neck, Breast. Past Anesthesia/Blood Transfusion Reactions: No Reported Reaction Past Psychological History: No Psychological Hx Reported Smoking Status: Current every day smoker Past Alcohol Use History: None Reported Past Drug Use History: None Reported General Exam General appearance: alert, in no apparent distress Head exam: Present: atraumatic, normocephalic, normal inspection Eye exam: Present: normal appearance, PERRL, EOMI. Absent: scleral icterus, conjunctival injection, periorbital swelling ENT exam: Present: normal exam, mucous membranes moist Neck exam: Present: normal inspection. Absent: tenderness, meningismus, lymphadenopathy Respiratory exam: Present: normal lung sounds bilaterally. Absent: respiratory distress, wheezes, rales, rhonchi, stridor Cardiovascular Exam: Present: regular rate, normal rhythm, normal heart sounds. Absent: systolic murmur, diastolic murmur, rubs, gallop, clicks GI/Abdominal exam: Present: soft, normal bowel sounds. Absent: distended, tenderness, guarding, rebound, rigid Extremities exam: Present: normal inspection, full ROM, normal capillary refill. Absent: tenderness, pedal edema, joint swelling, calf tenderness Back exam: Present: normal inspection Neurological exam: Present: alert, oriented X3, CN II-XII intact Psychiatric exam: Present: normal affect, normal mood Skin exam: Present: warm, dry, intact, normal color. Absent: rash Course Vital Signs 02/02/23 02/02/23 02/02/23 10:42 10:46 11:13 Temperature 98.0 F Pulse Rate 100 80 Respiratory 18 16 Rate Blood Pressure O2 Sat by Pulse 96 98 94 L Oximetry 02/02/23 02/02/23 02/02/23 11:20 11:30 12:58 Temperature 98.8 F Pulse Rate 73 67 80 Respiratory 9 L 9 L 16 Rate Blood Pressure 150/106 155/96 O2 Sat by Pulse Oximetry Chest Pain MDM - MDM Was pt. sent in by a medical professional or institution (, PA, EMERGENCY MEDICINE SPECIALIST, urgent care, hospital, or [facility]...) When possible be specific @ -No Did you speak to anyone other than the patient for history (EMS, parent, family, police, friend...)? What history was obtained from this source @ -No Did you review nursing and triage notes (agree or disagree)? Why? @ -I reviewed and agree with nursing and triage notes Were old charts reviewed (outside hosp., previous admission, EMS record, old EKG, old radiological studies, urgent care reports/EKG's, [facility] records)? Report findings @ -No old charts were reviewed Differential Diagnosis (chest pain, altered mental status, abdominal pain women, abdominal pain men, vaginal bleeding, weakness, fever, dyspnea, syncope, headache, dizziness, GI bleed, back pain, seizure, CVA, palpatations, mental health, musculoskeletal)? @ -acs, htn emergency, uncontrolled htn, coronary vasospasms EKG interpreted by me (3pts min.). @ Yes and demonstrates sinus rhythm with rate of 70. DE interval 145. QRS 101. QTC 407. No acute ST segment elevations or depressions X-rays interpreted by me (1pt min.). @ -yes, no acute process CT interpreted by me (1pt min.). @ -None done U/S interpreted by me (1pt. min.). @ -None done What testing was considered but not performed or refused? (CT, X-rays, U/S, labs)? Why? @ -None What meds were considered but not given or refused? Why? @ -None Did you discuss the management of the patient with other professionals (professionals i.e. Dr., PA, EMERGENCY MEDICINE SPECIALIST, lab, RT, psych nurse, clinical social worker, cylinder press operator, teacher, asset protection officer, outsole caser)? Give summary @ -No Was smoking cessation discussed for >3mins.? @ -No Was critical care preformed (if so, how long)? @ -No Were there social determinants of health that impacted care today? How? (Homelessness, low income, unemployed, alcoholism, drug addiction, transportation, low edu. Level, literacy, decrease access to med. care, group home, rehab)? @ -No Was there de-escalation of care discussed even if they declined (Discuss DNR or withdrawal of care, Hospice)? DNR status @ -No What co-morbidities impacted this encounter? (DM, HTN, Smoking, COPD, CAD, Cancer, CVA, ARF, Chemo, Hep., AIDS, mental health diagnosis, sleep apnea, morbid obesity)? @ htn Was patient admitted / discharged? Hospital course, mention meds given and route, prescriptions, significant lab abnormalities, going to OR and other pertinent info. @ -On arrival patient was placed into room 28. A thorough history and physical exam was performed. Patient has atypical chest pain. IV is established laboratory studies are conducted. 12-lead EKG was performed. Chest x-ray is performed. Patient is mildly hypertensive. Upon return the results they are discuss with patient. She has had weeks for the chest pain with no elevation in her troponin level. Chest pain is atypical. I did discuss the diagnosis, differential and treatment options. Feel that the patient needs to increase her losartan. Keep a blood pressure log. Follow up with her doctor to ensure that the medication change is helping. Return for any new or worsening symptoms. She does need further cardiac testing to include Holter monitor and echo. Patient understood all of this. Discharged in stable condition. Undiagnosed new problem with uncertain prognosis? @ -yes Drug Therapy requiring intensive monitoring for toxicity (Heparin, Nitro, Insulin, Cardizem)? @ -No Were any procedures done? @ -No Diagnosis/symptom? @ -acute atypical chest pain, acc htn Acute, or Chronic, or Acute on Chronic? @ -acute Uncomplicated (without systemic symptoms) or Complicated (systemic symptoms)? @ -uncomplicated Side effects of treatment? @ -No Exacerbation, Progression, or Severe Exacerbation? @ -No Poses a threat to life or bodily function? How? (Chest pain, [place], [place], pneumonia, PE, COPD, DKA, ARF, appy, cholecystitis, CVA, Diverticulitis, Homicidal, Suicidal, threat to staff... and all critical care pts) @ -No Disposition Clinical Impression: Atypical chest pain, Hypertension Disposition: HOME SELF-CARE Condition: Stable Instructions (If sedation given, give patient instructions): Chest Pain (ED) Additional Instructions: You need to follow up with your primary care doctor in 2-4 days. I recommend an echo and Holter monitor. Increase your blood pressure medication to 50 mg once daily. Keep a log of your blood pressures - measure them twice a day. Return for any new or worsening symptoms Prescriptions: Losartan [Cozaar] 50 mg PO DAILY #30 tab Is patient prescribed a controlled substance at d/c from ED?: No Referrals: Yared Bae DO [Primary Care Provider] - 1-2 days Time of Disposition: 13:03
[2023-02-02 13:07] VITALS: BP 155/96; PULSE 80; RESP 16; TEMP 98.8
[2023-02-02] MEDS ORDERED: KETOROLAC 15 MG/ML 1 ML VIAL IVP STA (13:10)
== END 2023-02-02 13:25 | disposition home or self-care (01) ==
LOC: EC 10:41
DX: I10 Essential (primary) hypertension (principal); F17.200 Nicotine dependence, unspecified, uncomplicated; Z79.899 Other long term (current) drug therapy
CPT/HCPCS: 36415; 93005; 83880; 80053; 83690; 83735; 84484; 85025; 85610; 85730; 71046; 99285; 96374; J1885